=== PATIENT | male | born 1995 | race American Indian/Alaskan Native ===

== ENCOUNTER → 2025-01-15 | Outpatient (CLI) | payer BC, SELFPAY ==
--- NOTE | 2025-01-15 | XR_ITS ---
Examination: Knee, right, 3 views Technique: Knee AP, lateral, oblique 3 views Date and time of exam: January 15, 2025, 0726 hours INDICATIONS: Right knee pain and stiffness beginning 10 days ago. FINDINGS: Mild narrowing medial joint space No fracture or dislocation No foreign body IMPRESSION: Mild narrowing medial joint space
== END | disposition home or self-care (01) ==
PROVIDERS: PCP Nurse Practitioner Family; Referring Provider Nurse Practitioner Family; Visit Provider Nurse Practitioner Family
DX: M25.561 Pain in right knee (principal); M25.661 Stiffness of right knee, not elsewhere classified; R79.89 Other specified abnormal findings of blood chemistry
CPT/HCPCS: 73562